=== PATIENT | male | born 1945 | race Caucasian/White ===

== ENCOUNTER → 2020-06-08 10:56 | Outpatient (CLI) | payer MEDICARE, BC, SELFPAY ==
[2020-06-08 13:06] LABS: COVID19 -Nasal RAPID Negative (Negative)
== END ==
PROVIDERS: Visit Provider Physician Assistant
DX: Z01.812 Encounter for preprocedural laboratory examination (principal); Z20.822 Contact with and (suspected) exposure to COVID-19
CPT/HCPCS: 87635; C9803

== ENCOUNTER 2020-06-10 07:44 | Day surgery (SDC) | payer MEDICARE, BC, SELFPAY ==
[2020-06-03 09:25] VITALS: BMI 23.7
[2020-06-10] VITALS (21 sets, daily range): BP systolic 92–138; BP diastolic 53–86; PULSE 66–91; RESP 12–20; TEMP 35.9–36.8; O2SAT 94–99; BMI 23.7
--- NOTE | 2020-06-10 | DI.RAD.S_ITS ---
PROCEDURE: XR PELVIS 1-2V INDICATIONS: INNER OP TECHNIQUE: 1 view of the lower pelvis acquired. COMPARISON: None. FINDINGS: Bones: Patient is status post left hip arthroplasty, with hardware components in expected positions. The hip joint appears congruent. The visualized bony structures appear intact. Soft tissues: Overlying postoperative changes are noted. No suspicious soft tissue densities. Multiple pelvic surgical clips bilaterally are present. Probable prior lymph node excision. IMPRESSION: Normal alignment after left total hip arthroplasty. Dictated by: Naif Huretas M.D. on 06/10/2020 at 11:53 Approved by: Naif Huertas M.D. on 06/10/2020 at 11:54
--- NOTE | 2020-06-10 06:39 | DI.RAD.S_ITS ---
PROCEDURE: XR HIP W PEL IF DONE LT 2V INDICATIONS: post op NAMITA TECHNIQUE: 3 view(s) of the hip acquired. COMPARISON: [facility], CR, XR PELVIS WITH LATERAL HIP LEFT, 01/03/2020, 11:57. [facility], CR, XR PELVIS 1-2V, 06/10/2020, 11:22. FINDINGS: Intraoperative images of the left total hip arthroplasty. Prosthesis is in the expected location. Multiple clips in the pelvis. IMPRESSION: Intraoperative images of the left total hip arthroplasty. Dictated by: Kevin Kuhn M.D. on 06/10/2020 at 11:20 Approved by: Kevin Kuhn M.D. on 06/10/2020 at 11:22
[2020-06-10] MEDS: CELECOXIB 200 MG CAPSULE PO (08:15)
[2020-06-10] MEDS: PREGABALIN 75 MG CAPSULE PO (08:15)
[2020-06-10] MEDS: ACETAMINOPHEN 325 MG TABLET 975 MG PO (08:15)
[2020-06-10] MEDS: LACTATED RINGERS 1,000 ML 42 ML IV (08:30)
--- NOTE | 2020-06-10 08:37 | PM.PREOP ---
Pre-operative Note COVID-19 COVID-19 status: Negative Result date/Date tested (Pos, Neg/Pending): 06/08/20 Interval Note History & Physical reviewed/Exam performed by Physician: Yes Changes to H&P: No H&P completed within 30 days and has changed as indicated here:: Plan for left anterior NAMITA
[2020-06-10] MEDS: CEFAZOLIN 2 GM/100 ML FROZ.PIGGY IV ×2 (08:44→17:10)
[2020-06-10] MEDS: TRANEXAMIC ACID 1,000 MG VIAL 2000 MG INJ ×2 (09:08→10:54)
--- NOTE | 2020-06-10 09:23 | SUR.OPER ---
Supine on padded [place] table with bilateral legs secured in padded positioning boots and suspended in positioning spars, operative leg in traction per surgeon. Head on one pillow. Arm on non-operative side secured on padded armboard <90 degrees abduction. Arm on operative side padded and resting across chest then secured with tape over sheet. Padded perineal post in place per surgeon.
[2020-06-10] MEDS: ROPIVACAINE 0.5% PF 5 MG/ML 20ML VIAL 60 ML INJ (09:36)
[2020-06-10] MEDS: MORPHINE 4 MG/ML INJ INJ (09:37)
[2020-06-10] MEDS: KETOROLAC 30 MG/ML VIAL IV (09:37)
[2020-06-10] MEDS: SODIUM CHLORIDE IRRIG SOLUTION 250 ML, POVIDONE-IODINE SPONGE STICKS 1 APPLIC IRR (09:40)
--- NOTE | 2020-06-10 11:17 | PM.OP.1 ---
Operative Date/Time/Diagnoses Date of procedure: 06/10/20 Time of procedure: 11:17 Pre-op diagnosis: left hip OA Post-op diagnosis: same Procedure & Clinicians Procedure: Left anterior total hip arthroplasty Same procedure as scheduled: Yes Indications: Left hip osteoarthritis resistant to further conservative measures Surgeon: Jarad Day Fittings Tightener: Tracy Mesa Click Yes if Unassisted: No Anesthesia Type: General and Spinal Operative Notes Findings: [id number]-[id number] arthritis at the weight-bearing portion the femoral head and acetabulum Closure Type: primary Specimen(s): none sent Prosthetic devices, grafts, tissues, transplants, or devices: [place] [employer] [place] R3 54 mm cup 54 mm x 36 mm neutral offset polyethylene liner 2x 25mm screws Size 7 standard offset anthology stem Biolox Delta ceramic 36+ 4 femoral head Estimated Blood Loss (mL): 200 Procedure in detail: Patient was met in the preoperative holding area where the site and side of surgery were marked by . Informed consent had been reviewed and signed in clinic however this was also reviewed the preoperative holding area. All last minute questions were answered. Patient was then brought back in the operating room where he received a spinal anesthetic. He was then transferred onto the Shell table and both feet were placed in well-padded [place] table boots. The left hip was then prepped and draped in normal sterile fashion. He was induced under general anesthesia. A surgical time-out was performed verifying the site and side of surgery as well as the name of the patient. A 7 cm long incision based 2 cm distal and 1 cm lateral to the ASIS was made in the skin using 10. Blade aiming towards the fibular head. Electrocautery was used to dissect down to the level the tensor fascia. A new 10. Blade was then used to incise the tensor fascia. Allis clamp was placed on the medial leaflet of the tensor and the tensor muscle itself was reflected laterally and a Cobra was placed over the superior aspect of the femoral neck. A Meyerding retractor was then placed over the lateral margin of the rectus femoris and retracted medially giving us good exposure to the ascending branches of the femoral circumflex vessels. These were then coagulated using electrocautery. A 2nd Cobra retractor was then placed over the inferior aspect of the femoral neck and a bent Hohmann was placed over the anterior lip of the acetabulum giving us good exposure to the capsule. Inverted T-shaped capsulotomy was then performed and superior inferior leaflets were tagged with a FiberWire suture. The capsule was then released off of the neck and the retractors were placed intracapsularly along the femoral neck this gave us good exposure of the femoral neck and and I used a reciprocating saw to make the femoral neck cut based off of our preop templated films. A corkscrew was then refused to remove the femoral head and soft tissue protector sleeve was then introduced into the wound. Bent Hohmann retractors then replaced the give us good exposure to the acetabulum and the labrum was removed using a [place] blade and electrocautery with suction was then used to remove the pulvinar. A 44 mm Reamer was then used to ream down to the base of the fossa. I began upsizing by 2s until I got to a 48 mm Reamer. At this point fluoroscopy was brought in to verify positioning. The final several reamers were reamed underneath fluoroscopic guidance at a 52 mm Reamer which are to get good resistance I selected 53 mm Reamer and then selected a 54 mm 3 hole cup. I touched reamed with the 54 mm Reamer and then placed the 54 mm cup underneath fluoroscopic guidance. This had good bite. Two screws were then placed both 25 mm in length. The polyethylene liner was then placed and malleted into place and confirmed that was flush with the rim of the cup and all tabs were well seated. We then turned attention to the femoral side femoral elevator hook placed on the posterior aspect of the femur the femur was then externally rotated to 120? extent to the floor and adducted. A Mcdonald retractor was placed over the calcar and a bent Hohmann was placed over the superior aspect of the superior leaflet of the capsulotomy the capsule then released off the inner shoulder of the greater trochanter which provide a soft tissue window and the large retractor was then placed over the greater trochanter to give a 6 exposure to the short external rotators. Short external rotators were partially released off their insertion. A alexis duarte was then used followed by sean rodriguez to lateralize followed by 1. Stem and upsizing to a size 6. At size 6 stem I calcar planed off the broach placed a standard offset neck with a 36+ 4 head and reduced the hip we were little short on fluoroscopic views of the hip was stable through range of motion. The hip was then dislocated the trials were removed and the we up sized by 1 stem to a size 7 stem and then trialed with a standard offset neck and a +4 head this gave us near identical leg lengths the hip was then dislocated a final time the broach and trials were removed and a size 7 standard anthology final stem was placed and a 36+ 4 bile locks delta ceramic head was placed onto the trunnion. The hip was then reduced a final time local anesthetic was then infiltrated in the periarticular soft tissues and the capsule itself. Betadine solution was then placed in the wound allowed to sit for several minutes prior to being lavage away with copious normal saline. Final fluoroscopic views were obtained. The capsulotomy was then repaired with a running Ethibond suture in the FiberWire tag sutures were removed. The tensor fascia was then closed using 1. Vicryl in a running fashion followed by 2 Vicryl in the subcutaneous layer for allowing followed by running 3-0 Stratafix in subcuticular Dermabond and Aquacel dressing. Complications: none Post-operative Condition: stable Disposition: PACU Plan for aftercare: 24 hours post-op abx, WBAT LLE, ASA 81mg BID for 6 weeks, warfarin (baseline)
[2020-06-10] MEDS: fentaNYL 100 MCG/2 ML INJ IV (11:54)
[2020-06-10] MEDS: LACTATED RINGERS 1,000 ML 100 ML IV ×3 (12:00→23:45)
--- NOTE | 2020-06-10 12:51 | SUR.PHASEI ---
Pt awoke, xray taken. Pt c/o minimal pain from hip, but 4/10 pain from back. Pt turned to l side and back inspected, no hematoma or anmy shrestha to back, ADELITA Flores concurred with assessment. Pt medicated with fentanyl, ice placed to back and this made discomfort to back tolerable
--- NOTE | 2020-06-10 12:54 | SUR.PHASEI ---
Pt transported up to room 215 and left with Consuelo in stable condition.
--- NOTE | 2020-06-10 13:50 | PT.IIE ---
Current Diagnoses Unilateral primary osteoarthritis, left hip (06/10/20) Surgery Performed Operation Date: 06/10/20 08:45 Actual Procedures p Total Hip Arthroplasty/Anterior Approach(Left) - Jarad Day MD Surgical History (Last Updated 06/03/20 @ 10:23 by Mercy Schmitz, RN) History of colonoscopy with polypectomy History of nasal surgery History of vasectomy (~1977) Hx of bilateral cataract extraction (2015) Hx of detached retina repair Hx of heart artery stent (2007) Hx of prostatectomy (12/1998) Medical History (Last Updated 06/03/20 @ 10:21 by Mercy Schmitz RN) Aortic valve regurgitation CAD (coronary artery disease) CHF (congestive heart failure) Hearing impaired HLD (hyperlipidemia) HTN (hypertension) Hypotension IBS (irritable bowel syndrome) Nonrheumatic aortic (valve) insufficiency PAF (paroxysmal atrial fibrillation) (2011) Prostate cancer (12/1998) Seasonal allergies Physical Therapy Inpatient Evaluation/Re-Eval M1 PT/OT-IP Prior Functional Status Start: 06/10/20 15:28 Freq: NEEDED Status: Active Protocol: Document 06/10/20 13:50 AB (Rec: 06/10/20 15:47 AB [email or web address]) Medical Review Prior Functional Status Medical History Reviewed Yes Communication able to make needs known Mobility and Gait pt stated that he is independent with all mobilities and ambulation without AD Social History Household Members spouse Living Arrangements House Number of Floors (Floors) Two Floors Number of Stairs To Enter/Railing? pt will stay on the main level of the house has 7 steps to enter with bilateral rails Home Environment Standard Height Toilet,Walk in Shower Home Equipment Front Wheel Walker,Raised Toilet Seat Without Armrests Employment Status Retired M2 PT-IP Current Condition Start: 06/10/20 15:28 Freq: NEEDED Status: Active Protocol: Document 06/10/20 13:50 AB (Rec: 06/10/20 15:47 AB [email or web address]) Physical Therapy Current Condition Current Condition Evaluation Date 06/10/20 Treatment Diagnosis s/p L NAMITA anterior approach; difficulty in walking Onset Date 06/10/20 Precautions Anterior Hip Precautions No Hip Extension,No Hip External Rotation Weight Bearing Status Weight Bearing Status Weight Bear as Tolerated Allowed Weight Bearing Amount (enter % LLE WBAT or #) (%) M3 PT-IP Subjective Start: 06/10/20 15:28 Freq: NEEDED Status: Active Protocol: Document 06/10/20 13:50 AB (Rec: 06/10/20 15:47 AB [id number]) Subjective Physical Therapy Visit Type Type Initial Evaluation Visit Start Time 13:50 Visit Stop Time 15:10 Total Visit Minutes 70 Notes pt seen for split visits: 1350 to 1450 and 1500 to 1510 Number of GRASSLAND CONSERVATIONIST Visits 0 Physical Therapy Visit Comments Patient Comments pt is agreeable to do PT; pt wanting to go home later today if possible Therapy Pain Assessment Pain Present Pain Present Denied Pain M4 PT-IP Mobility and Gait Start: 06/10/20 15:28 Freq: NEEDED Status: Active Protocol: Document 06/10/20 13:50 AB (Rec: 06/10/20 15:47 AB [id number]) PT-Bed Mobility Assessment Supine to Sit Supine to Sit Standby Assistance PT-Transfer Assessment Sit to and From Stand Sit to and from Stand Minimal Assistance,Moderate Assistance,1 Person Assistance ,Use of Upper Extremities Equipment Transfer Assistive Device Gait Belt,Front Wheeled Walker Orthotic/Prosthetic Devices or Brace: No Transfers Transfer Destination Chair Transfer Technique ambulated using FWW Transfer Ability Level of Assist Minimal Assistance,Moderate Assistance,1 Person Assistance ,Use of Upper Extremities Comments Mobility Comments informed pt regarding PT and inquired regarding sensation on BLE and stated that he can feel ok and wants to move. educated pt on L hip anterior precautions. pt is able to recall. BP: 122/68. completed supine to sit SBA. pt was able to sit on EOB and without any complaints. noticed pt urinating during mobility. pt stated that he still feels numb on his butt and still a little on BLE. assisted pt with brief/gown/ socks management. NAC also in room to assist. pt attempted to stand but continues to urinate during mobility and has to sit back down. assisted again with brief/socks management. pt completed sit to stand mod A and cues, able to maintain standing using FWW for support min to mod A and assisted with brief management. ambulated towards the chair using FWW min to mod A and cues. agreed to sit up on the chair. call light and table placed within reach. informed pt that he is not ready to go home today and pt agreed. set up caregiver training with spouse tomorrow at ~ 10 am. Nurse informed PT that pt's BP is low: 94/70 and needs assistance to go back to bed. Pt seen again and completed sit to stand min A and cues and completed step transfer to bed using FWW min A. completed sit to supine SBA. positioned in bed. call light and table placed within reach . BP checked: 102/72. Gait Assessment Gait Gait Assistance Required: Minimum Assistance,Moderate Assistance Distance (Feet) 12 Able to Maintain Weight Bearing Status Yes During Gait Assistive Devices Assistive Device Gait Belt,Front Wheeled Walker Orthotic/Prosthetic Devices or Brace: No Gait Deviations General Gait Pattern Antalgic,Decreased Stride Length,Decreased Feet Clearance Factors Limiting Gait Function Factors Limiting Gait Function Decreased Activity Tolerance, Decreased Sensation,Decreased Strength,Poor Balance PT-Balance Assessment Sitting Balance and Reactions Static Sitting Balance Ability Good Dynamic Sitting Balance Ability Good Standing Balance and Reactions Static Standing Balance Ability Fair Dynamic Standing Balance Ability Fair Device Used FWW M5 PT-IP Objective Assessments Start: 06/10/20 15:28 Freq: NEEDED Status: Active Protocol: Document 06/10/20 13:50 AB (Rec: 06/10/20 15:47 AB [email or web address]) Orientation Orientation/Cognition Level of Alertness Alert Orientation Name,Place,Situation Language Function Ability No Deficits Noted Safety Awareness Understands Safety Issues Memory Description No Deficits Noted Gross Range of Motion Lower Extremity ROM Assessment Within Functional Limits Strength Lower Extremity Strength Assessment Left Impaired Hip 3+/5 Knee 4-/5 Coordination Assessment Gross Coordination Gross Coordination WNL Sensation Assessment Sensation Sensation Description Numbness Comments Sensation Comments still c/o slight numbness on buttocks and BLE ; able to feel light touch on BLE Muscle Tone Muscle Tone WNL Yes M6 PT-IP Treatment Start: 06/10/20 15:28 Freq: NEEDED Status: Active Protocol: Document 06/10/20 13:50 AB (Rec: 06/10/20 15:47 AB [email or web address]) Physical Therapy Treatment Education Education Provided Precautions,Weight Bearing Status,Post-Op Packet,Safety M7 PT-IP Assessment and Plan Start: 06/10/20 15:28 Freq: NEEDED Status: Active Protocol: Document 06/10/20 13:50 AB (Rec: 06/10/20 15:47 AB [email or web address]) PT Summary Assessment and Plan Potential Rehabilitation Potential Good Status of Condition at Evaluation Evolving Summary Impairments Pain,ROM,Strength,Balance, Coordination,Sensation,Bed Mobility,Transfers,Gait, Activity Tolerance Assessment Summary pt requiring min to mod A with mobility. pt just had L NAMITA this morning and will likely progress during hospital stay. Pt is wanting to go home today but is not safe at this time and pt agreed. caregiver training set up for tomorrow with spouse assisting. Pt stated that he is set up for outpt PT. pt also has a standard walker but stated that he has the wheels/skids at home and spouse will be able to bring in tomorrow and PT to be able to adjust equipement. Goals Bed Mobility Goal Independent Transfer Goal Independent,Front Wheeled Walker Gait Goal Standby Assistance,Front Wheel Walker Gait Distance 200 Other Goals up/down 7 steps B rails SBA Days to Meet Goals 5 Frequency of Treatment Frequency Of Treatment Twice a Day Treatment Plan Physical Therapy Treatment Plan Bed Mobility Training,Transfer Training,Gait Training, Therapeutic Exercise,Balance Retraining,Post Op Education, Discharge Planning,Hot or Cold Pack,Neuromuscular Re-ed, Coordination Retraining,Manual Therapy Other Recommendations and Next Treatment caregiver training 06/11/20 10am Focus Recommendations To Nursing Amount of Assist Needed 1 Person Assist Discharge Recommendations PT Discharge Recommendations Home with Assistance, Outpatient PT Transportation Needs at Discharge Private Vehicle
[2020-06-10] MEDS: ACETAMINOPHEN 325 MG TABLET 650 MG PO ×2 (14:17→21:43)
[2020-06-10 16:53] LABS: Add Manual Diff / Slide Review NO; Basophils Absolute Auto 100 /uL (0-100); Basophils Percent Auto 0.4 % (0-2); Eosinophils Absolute Auto 0 /uL (0-450); Eosinophils Percent Auto 0.2 % (2-4); Hematocrit 37.6 % (41-53); Hemoglobin 12.5 g/dL (13.5-17.5); Lymphocytes Absolute Auto 400 /uL (1100-4500); Lymphocytes Percent Auto 3.4 % (25-40); Mean Corpuscular HGB Conc 33.2 % (30-36); Mean Corpuscular Hemoglobin 29.8 PG (26-34); Mean Corpuscular Volume 89.7 fL (80-100); Monocytes Absolute Auto 400 /uL (0-900); Neutrophils Absolute Auto 11600 /uL (1500-7000); Platelet Count 230 X10^3/uL (150-400); Red Cell Distribution Width 14.4 % (11.6-14.8); White Blood Cell Count 12.5 X10^3/uL (4.5-11.0)
[2020-06-10] MEDS: WARFARIN 5 MG TABLET 7.5 MG PO (17:10)
--- NOTE | 2020-06-10 17:31 | PC.NURSE ---
Addendum entered by Savita Truong R.N. 06/10/20 23:02: Pt desires to get out of bed to bathroom to toilet. Has been up with P.T. prior to this shift beginning and reported dizziness. BP checked by DRYING ROOM ATTENDANT with pt sitting on side of bed and systolic pressure 135. Pt ambulatory with DRYING ROOM ATTENDANT and voided in bathroom without any difficulties. Returned to bed. Medicated for c/o headache pain 06/14. Has had ice pack on and off of left anterior hip this shift. Addendum entered by Savita Truong R.N. 06/10/20 18:21: R.T. in to do I.S. teaching. Ice provided to left anterior hip. Aquacel dressing intact to left anterior hip. Pt admits to full sensation to BL LE's. Is actively ankle waving. BL calf scd's in place. Original Note: Pt denies pain. Admits to some back discomfort relieved with repositioning in bed. Dr. Day has seen pt this evening shift.
[2020-06-10] MEDS: LOPERAMIDE 2 MG CAPSULE 8 MG PO (21:42)
[2020-06-10] MEDS: ATORVASTATIN 20 MG TABLET 40 MG PO (21:43)
[2020-06-11 00:05] VITALS: BP 134/73; PULSE 97; RESP 18; TEMP 37; O2SAT 98
[2020-06-11] MEDS: OXYCODONE IR 5 MG TABLET PO (00:31)
[2020-06-11] MEDS: CEFAZOLIN 2 GM/100 ML FROZ.PIGGY IV (00:31)
[2020-06-11 05:00] VITALS: BP 115/81; PULSE 83; RESP 18; TEMP 36.7; O2SAT 98
[2020-06-11 05:51] LABS: Hematocrit 33.7 % (41-53); Hemoglobin 11.2 g/dL (13.5-17.5)
--- NOTE | 2020-06-11 06:18 | PC.NURSE ---
Pt stable through shift, pain controlled. Fluids running as prescribed. Dressing CDI, VSS: BP WNL. +C/S, ROM slightly decreased in L leg d/t surgical site.
--- NOTE | 2020-06-11 07:27 | PM.PNPO.1 ---
Subjective Subjective Date Patient Seen: 06/11/20 Time Patient Seen: 07:28 Interval history: POD #1 s/p L NAMITA with Dr. Day. His pain is well controlled with Oxycodone. He has not been up with PT yet. Exam Vital Signs (past 8 hours): - 06/11/20 00:05 06/11/20 05:00 Temperature 98.6 F 98.1 F Pulse Rate 97 H 83 Respiratory Rate 18 18 Blood Pressure 134/73 115/81 Pulse Oximetry 98 98 Oxygen Delivery Method Room Air Oxygen Flow Rate 0 Narrative Exam Narrative: Patient lying in bed in NAD. He is alert and oriented X3. Calves are soft, compressible, and nontender bilaterally. SILT throughout BLEs. DP pulses symmetrical. He is able to actively dorsiflex and plantarflex. Objective Labs Result Diagrams: 06/11/20 05:10 Labs: Laboratory Results - last 24 hr 06/10/20 06/11/20 16:48 05:10 WBC 12.5 H RBC 4.20 L Hgb 12.5 L 11.2 L Hct 37.6 L 33.7 L MCV 89.7 MCH 29.8 MCHC 33.2 RDW 14.4 Plt Count 230 Neut % (Auto) 93.0 H Lymph % (Auto) 3.4 L [place] % (Auto) 3.0 Eos % (Auto) 0.2 L Baso % (Auto) 0.4 Neut # (Auto) 79047 H Lymph # (Auto) 400 L [place] # (Auto) 400 Eos # (Auto) 0 Baso # (Auto) 100 PFSH Medical History Aortic valve regurgitation CAD (coronary artery disease) CHF (congestive heart failure) Hearing impaired HLD (hyperlipidemia) HTN (hypertension) Hypotension IBS (irritable bowel syndrome) Nonrheumatic aortic (valve) insufficiency PAF (paroxysmal atrial fibrillation) (2011) Prostate cancer (12/1998) Seasonal allergies Surgical History History of colonoscopy with polypectomy History of nasal surgery History of vasectomy (~1977) Hx of bilateral cataract extraction (2015) Hx of detached retina repair Hx of heart artery stent (2007) Hx of prostatectomy (12/1998) Social History household members: spouse Smoking Status: Never smoker alcohol intake: current Assessment & Plan Post-op Postoperative Procedures: Procedures Operation Date: 06/10/20 08:45 Actual Procedures Side Surgeon p Total Hip Arthroplasty/Anterior Approach Left Jarad Day MD Patient will mobilize with PT today. Will follow anterior hip precautions. He is to take ASA 81 mg BID. He is on Warfarin as well and has an appointment on Monday to get his INR checked. Plan to DC home today if he is mobilizing safely. Quality VTE Deep Vein Thrombosis/Pulmonary Embolism Present on Admission: No
[2020-06-11 08:00] VITALS: BP 119/70; PULSE 89; RESP 16; TEMP 36.8; O2SAT 98
--- NOTE | 2020-06-11 09:02 | CM.IDA ---
Initial DCP Assessment Note Patient is a 74 yo male, resident of [place]. Patient is POD#1 from Left NAMITA w/Dr Day Primary Care Provider: Nerissa Turner Payer: [employer]IM out of [facility] Reviewed chart, therapy has cleared pt for return home w/family to assist and pt has planned for home, DC order from Ortho has already been initiated this morning. Patient eager to go home, cg training will be conducted w/spouse today. Spouse is a retired RN, both patient/spouse confident about patient's return home. No needs expected from DC planning team although will remain available in case this changes today. KEYA Discharge Planning/Care Management CM Discharge Assessment Start: 06/11/20 08:57 Freq: Status: Active Protocol: Document 06/11/20 08:57 KEYA (Rec: 06/11/20 09:02 KEYA [id number]) Discharge Planning Assessment Assigned [employer] Courtesy Clerk GAETANO Wang DPOA/Assigned Designee Name Remberto Arellano, spouse Contact Information [phone], Advance Directives? No Advance Directives on File No History Provided By Patient,Significant Other, Medical Record Prior Living Arrangements House Household Members spouse Type of transporation used prior to Drives own vehicle admit Independent with ADL's Yes Is patient alert and oriented? Yes Caregiver for Another No Patient/Family Preference OP PT Therapy Barriers to Discharge No Discharge Plan Home Transportation Arrangement Spouse Referrals Initiated None needed
[2020-06-11] MEDS: ACETAMINOPHEN 325 MG TABLET 650 MG PO (09:49)
[2020-06-11] MEDS: LOPERAMIDE 2 MG CAPSULE 8 MG PO (09:49)
[2020-06-11] MEDS: ASPIRIN EC 81 MG TABLET PO (09:49)
[2020-06-11 09:50] VITALS: BP 119/70; PULSE 89
[2020-06-11] MEDS: DIGOXIN 0.125 MG TABLET PO (09:50)
--- NOTE | 2020-06-11 09:56 | PT.IPTN ---
Current Diagnoses Unilateral primary osteoarthritis, left hip (06/10/20) Surgery Performed Operation Date: 06/10/20 08:45 Actual Procedures p Total Hip Arthroplasty/Anterior Approach(Left) - Jarad Day MD Physical Therapy Treatment Note M2 PT-IP Current Condition Start: 06/10/20 15:28 Freq: NEEDED Status: Discharge Protocol: Document 06/10/20 13:50 AB (Rec: 06/10/20 15:47 AB [id number]) Physical Therapy Current Condition Current Condition Evaluation Date 06/10/20 Treatment Diagnosis s/p L NAMITA anterior approach; difficulty in walking Onset Date 06/10/20 Precautions Anterior Hip Precautions No Hip Extension,No Hip External Rotation Weight Bearing Status Weight Bearing Status Weight Bear as Tolerated Allowed Weight Bearing Amount (enter % LLE WBAT or #) (%) M3 PT-IP Subjective Start: 06/10/20 15:28 Freq: NEEDED Status: Discharge Protocol: Document 06/11/20 09:56 AB (Rec: 06/11/20 11:46 AB [id number]) Subjective Physical Therapy Visit Type Type Treatment Note Visit Start Time 09:56 Visit Stop Time 10:27 Total Visit Minutes 31 Number of MANAGER INSTRUMENTATION Visits 0 Physical Therapy Visit Comments Patient Comments pt is agreeable to do PT. spouse in room with pt Therapy Pain Assessment Pain When Pain Assessed At Rest Pain Present Pain Present Pain Reported Location Left Hip Intensity 1 Scale Used Numeric (0 - 10) Pain Management Techniques Timing of Activity with Medications M4 PT-IP Mobility and Gait Start: 06/10/20 15:28 Freq: NEEDED Status: Discharge Protocol: Document 06/11/20 09:56 AB (Rec: 06/11/20 11:46 AB [id number]) PT-Bed Mobility Assessment Supine to Sit Supine to Sit Standby Assistance Sit to Supine Sit to Supine Standby Assistance PT-Transfer Assessment Sit to and From Stand Sit to and from Stand Standby Assistance Equipment Transfer Assistive Device Gait Belt,Front Wheeled Walker Orthotic/Prosthetic Devices or Brace: No Transfers Transfer Destination Bed,Chair Transfer Technique ambulated using FWW Transfer Ability Level of Assist Standby Assistance,1 Person Assistance,Use of Upper Extremities Comments Mobility Comments pt sitting on chair with spouse assisted with dressing. Adjusted and replaced pt's standard walker legs to wheels and sliders per pt's request. pt completed sit to stand from chair SBA and ambulated towards the bed using FWW SBA. completed sit<>supine SBA. educated spouse on how to use safety belt and how to assist pt when needed. spouse was able to put safety belt on pt and assisted pt with sit to stand. pt ambulated towards the stairs ~ 75 ft using FWW SBA. educated pt and spouse on how to do stair climbing and pt completed with SBA using B rails. pt ambulated back to his room using FWW SBA and sat on chair. Pt and spouse has no further concerns . Gait Assessment Gait Gait Assistance Required: Standby Assistance Distance (Feet) 75 Able to Maintain Weight Bearing Status Yes During Gait Assistive Devices Assistive Device Gait Belt,Front Wheeled Walker Orthotic/Prosthetic Devices or Brace: No Gait Deviations General Gait Pattern Antalgic Factors Limiting Gait Function Factors Limiting Gait Function Decreased Strength,Pain,Poor Balance,Poor Safety Awareness Stair Climbing Assessment Evaluation Level of Assist On Stairs Standby Assistance Devices Stair Climbing Assistive Devices Left Railing,Right Railing Technique/Endurance Stair Climbing Direction Ascend and Descend Stair Climbing Technique Step to Step Number of Steps Climbed 3 Stair Climbing Set # Repetitions (reps) 2 M5 PT-IP Objective Assessments Start: 06/10/20 15:28 Freq: NEEDED Status: Discharge Protocol: Document 06/10/20 13:50 AB (Rec: 06/10/20 15:47 AB [id number]) Orientation Orientation/Cognition Level of Alertness Alert Orientation Name,Place,Situation Language Function Ability No Deficits Noted Safety Awareness Understands Safety Issues Memory Description No Deficits Noted Gross Range of Motion Lower Extremity ROM Assessment Within Functional Limits Strength Lower Extremity Strength Assessment Left Impaired Hip 3+/5 Knee 4-/5 Coordination Assessment Gross Coordination Gross Coordination WNL Sensation Assessment Sensation Sensation Description Numbness Comments Sensation Comments still c/o slight numbness on buttocks and BLE ; able to feel light touch on BLE Muscle Tone Muscle Tone WNL Yes M6 PT-IP Treatment Start: 06/10/20 15:28 Freq: NEEDED Status: Discharge Protocol: Document 06/11/20 09:56 AB (Rec: 06/11/20 11:46 AB [email or web address]) Physical Therapy Treatment Education Education Provided Precautions,Safety M7 PT-IP Assessment and Plan Start: 06/10/20 15:28 Freq: NEEDED Status: Discharge Protocol: Document 06/11/20 09:56 AB (Rec: 06/11/20 11:46 AB [id number]) PT Summary Assessment and Plan Potential Rehabilitation Potential Good Summary Impairments Pain,ROM,Strength,Balance,Bed Mobility,Transfers,Gait, Activity Tolerance Progress Towards Goals Progressing Toward Goals Assessment Summary pt is progressing well with mobility. pt plans to go home today and spouse will be able to assist pt. pt may go home when medically stable. Goals Bed Mobility Goal Independent Transfer Goal Independent,Front Wheeled Walker Gait Goal Standby Assistance,Front Wheel Walker Gait Distance 200 Other Goals up/down 7 steps B rails SBA Days to Meet Goals 5 Frequency of Treatment Frequency Of Treatment Twice a Day Treatment Plan Physical Therapy Treatment Plan Bed Mobility Training,Transfer Training,Gait Training, Therapeutic Exercise,Balance Retraining,Post Op Education, Discharge Planning,Hot or Cold Pack,Neuromuscular Re-ed, Coordination Retraining,Manual Therapy Other Recommendations and Next Treatment caregiver training 06/11/20 10am Focus Recommendations To Nursing Amount of Assist Needed 1 Person Assist Discharge Recommendations PT Discharge Recommendations Home with Assistance, Outpatient PT Transportation Needs at Discharge Private Vehicle
--- NOTE | 2020-06-11 11:11 | PC.NURSE ---
Pt is dressed and ready for discharge home with Spouse. Spouse is a RN. Went over d/c instructions with Pt and Spouse-discussed d/c meds, time of last dose, reviewed stroke education, reviewed anti-coagulation, reminded Pt to follow hip precautions, encouraged Pt to drink plenty of fluids to prevent constipation or dehydration, and no driving while on narcotics. Pt and Spouse denied further questions and were taken out via w/c by [employer] to POV with Spouse and all belongings.
== END 2020-06-11 11:17 | disposition home or self-care (01) ==
LOC: OR 07:50 → AC 12:55
PROVIDERS: Referring Provider Orthopaedic Surgery Adult Reconstructive Orthopaedic Surgery; Visit Provider Orthopaedic Surgery Adult Reconstructive Orthopaedic Surgery
PROC: (CPT 27130; principal; 2020-06-10 08:45)
DX: M16.12 Unilateral primary osteoarthritis, left hip (principal); I10 Essential (primary) hypertension; E78.5 Hyperlipidemia, unspecified; I50.9 Heart failure, unspecified; I48.0 Paroxysmal atrial fibrillation; Z79.01 Long term (current) use of anticoagulants
CPT/HCPCS: 27130; 36415; 72170; 73502; 76000; 85014; 85018; 85025; 85610; 97116; 97162; 97530; C1776; J0690; J1100; J1885; J2250; J2270; J2405; J2704; J3010

== ENCOUNTER 2024-02-20 08:46 | Day surgery (SDC) | payer MEDICARE, BC, SELFPAY ==
[2020-06-10 13:03] VITALS: BMI 23.7
[2024-02-08 11:51] VITALS: BMI 22.2
[2024-02-20] VITALS (11 sets, daily range): BP systolic 98–152; BP diastolic 50–91; PULSE 65–82; RESP 10–19; TEMP 35.8–37.1; O2SAT 92–98; BMI 21.7
--- NOTE | 2024-02-20 | DI.RAD.S_ITS ---
PROCEDURE: XR HIP W PEL IF DONE RT 2V INDICATIONS: TOTAL ANTERIOR RIGHT HIP TECHNIQUE: AP pelvis and lateral view of the hip acquired. COMPARISON: [facility], CR, XR HIP W PEL IF DONE RT 2V, 02/20/2024, 12:38. [facility], CR, XR HIP W PEL IF DONE LT 2V, 06/10/2020, 9:52. FINDINGS: Diffuse osseous demineralization. Status post bilateral total hip arthroplasty without hardware complication. Postoperative subcutaneous edema and emphysema around the right hip joint. Surgical clips overlying the pelvis. No fracture or dislocation. No hardware complication. IMPRESSION: Status post right hip total arthroplasty in expected alignment without hardware complication. Dictated by: Richard Sullivan M.D. on 02/20/2024 at 18:22 Approved by: Richard Sullivan M.D. on 02/20/2024 at 18:22
--- NOTE | 2024-02-20 06:00 | DI.RAD.S_ITS ---
PROCEDURE: XR HIP W PEL IF DONE RT 2V INDICATIONS: NAMITA TECHNIQUE: 2 view(s) of the hip acquired. COMPARISON: [facility], CR, XR HIP W PEL IF DONE LT 2V, 06/10/2020, 9:52. FINDINGS: Intraoperative fluoroscopy for right hip arthroplasty. The joint appears congruent. The lateral more screw fixing the acetabular cup may be outside the bony acetabulum. No unexpected fractures. Numerous surgical clips in the pelvis. Left hip arthroplasty changes are noted. IMPRESSION: Intraoperative fluoroscopy for right hip arthroplasty placement. Correlate with intraoperative findings. Dictated by: Zuleika Montero M.D. on 02/20/2024 at 23:34 Approved by: Zuleika Montero M.D. on 02/20/2024 at 23:36
[2024-02-20] MEDS: LACTATED RINGERS 1,000 ML 42 ML IV (09:24)
[2024-02-20] MEDS: ACETAMINOPHEN 325 MG TABLET 975 MG PO (09:24)
[2024-02-20] MEDS: VANCOMYCIN 1,000 MG/200 ML PIGGYBACK 200 MG IV (09:24)
[2024-02-20] MEDS: CELECOXIB 200 MG CAPSULE PO (09:24)
--- NOTE | 2024-02-20 10:44 | PM.PREOP ---
Pre-operative Note Interval Note History & Physical reviewed/Exam performed by Physician: Yes Changes to H&P: No
--- NOTE | 2024-02-20 10:46 | SUR.OPER ---
Patient supine on padded [place] table, one arm on padded arm board at <90, other arm padded and secured with tape across patient's chest, both legs secured in padded traction boots and positioned per surgeon, padded post at patient's groin, pressure points checked and padded.
--- NOTE | 2024-02-20 10:48 | PM.OP.1 ---
Operative Date/Time/Diagnoses Date of procedure: 02/20/24 Time of procedure: 11:00 Pre-op diagnosis: Severe right hip AVN, hip OA Post-op diagnosis: same Procedure & Clinicians Procedure: Right total hip arthroplasty anterior approach Same procedure as scheduled: Yes Indications: The patient has had progressively worsening right hip pain with radiographic changes consistent with arthritis. Non-operative management has failed and the patient has requested total hip replacement. The risks, benefits and alternatives to surgery were discussed with the patient prior to proceeding. Risks discussed included, but were not limited to, failure to relieve pain, leg length discrepancy, dislocation, stiffness, infection, nerve damage, deep venous thrombosis, pulmonary embolism, stroke, coma, heart attack, permanent paralysis and , as well as the potential need for eventual revision of the prosthetic. Surgeon: Doris [place] Nuclear Radiologist: Morgan Wolfe Anesthesia Type: Spinal Operative Notes Findings: Severe right hip osteoarthritis with marked flattening of the femoral head, adequate bone, adequate stability Closure Type: primary Specimen(s): none sent Prosthetic devices, grafts, tissues, transplants, or devices: [place] and nephew 56mm R3 acetabulum, neutral poly liner,two 6.5 mm screw, polar stem size 1 standard offset, 36 by +0 cobalt chrome, Estimated Blood Loss (mL): 250 Blood products transfused: none Procedure in detail: The patient was brought to the operating room. Patient was carefully positioned in the supine position. Time-out was performed and antibiotics were given. Anesthesia was induced. He was positioned in the on the table in order to allow hyperextension of the hip. The right lower extremity was prepped and draped in a standard sterile fashion. An anterior right hip incision was made 1 fingerbreadth lateral to the anterior superior iliac spine and extended distally towards the greater trochanter. Dissection was carried out through skin and subcutaneous tissues. Superficial hemostasis was achieved. The fascia over the tensor fascia david was defined and incised with a knife. Two Allis clamps were used to grasp the fascia. Tensor fascia david was retracted laterally. A gelpi retractor was placed. Dissection was carried out down along the neck. The circumflex vessels were carefully identified and cauterized with the Aqua Mantis. A PA was used during the procedure and was essential for intraoperative retraction and safe implantation of the components. There was good visualization of the femoral neck. A Cobra was placed superior to the neck and the gluteus fibers were carefully stripped from that superior aspect of the capsule. A 2nd retractor was placed along the inferior aspect of the neck. The rectus insertion along the capsule was partially released. A 3rd retractor that was then gently placed over the rim of the acetabulum under the rectus. Capsule was carefully incised and released from the intertrochanteric line circumferentially superior to the mid sagittal line and inferiorly to the mid sagittal line until the lesser trochanter was palpable. A tag stitch was placed both in the superior and inferior limb of the capsular insertion. Along the acetabulum capsule was also released up to the mid sagittal 12:00 position. A portion of the labrum was resected. A saw was used to perform an osteotomy at the level of the intertrochanteric line and the junction of the superior femoral neck leaving approximately 1 finger breath of residual inferior neck above the lesser trochanter. A 2nd cut was made along the femoral neck at the base of the head and a napkin ring of neck was removed. Corkscrew was placed in the femoral head and the head was removed without difficulty. Retractors were then repositioned around the acetabulum. Residual labrum was resected and additional osteophytes were removed. A reamer that was 4 mm below the templated size was placed by hand in the acetabulum and it was reamed to centralize the acetabulum. It was then reamed up to 2 under the templated size and fluoroscopy was brought in to confirm the position of the reaming and depth of reaming. I reamed 1 under the anticipated size. A trial cup was placed and noted that it was appropriately sized and fluoroscopy confirmed position and depth. The component was open and inserted without difficulty fluoroscopic imaging was used to confirm that the cup had been adequately seated and was well positioned. It was further stabilized with two screws. Neutral poly liner was placed. The cup was tested and noted to be stable. Attention was then directed to the femur. The femur was gently hyperextended additional capsular release was performed as needed in order to allow adequate visualization of the proximal femur with elevation of the femur. Patient was placed in a hyperextended slightly adducted position with maximum external rotation. Box osteotome was used to check for any residual neck as well as sclerotic bone along the trochanter. [place] pepper was placed in the femur. Additional broaching was performed. Canal finder was used to determine the alignment of the canal and position. Size 1 broach was placed. The canal was then appropriately broached up to the templated size as long as there was adequate stability of the broach and serial advancement of the broach without excessive impingement. Specific attention was directed at avoiding varus attempting to direct the distal aspect of the broach more anteriorly and avoiding excessive anteversion. Trial reduction showed acceptable range of motion, good stability, no posterior impingement, adventism of leg length and appropriate lateral shuck. I also hyperflexed the hip and checked that there was no impingement anteriorly and there was good stability with flexion, adduction and internal rotation. Marcaine and Exparel were injected.. The stem was placed without difficulty. Repeat trial reduction and x-ray showed acceptable overall position, length, and no evidence of the femoral fracture. Final head was placed. Wound was meticulously irrigated with normal saline. The hip was reduced and additional Exparel and Marcaine were injected. The capsule was closed with interrupted nonabsorbable sutures. The fascia of the tensor was closed with interrupted and running Vicryl. No drain was placed. Any tensor fascia david muscle that appeared to be contused or injured which was a minimal amount was carefully resected. Capsule around the tensor was injected with Exparel and Marcaine. The skin was closed with barbed stitches for the subcutaneous tissue and skin. We also used surgical glue. The wound was dressed sterilely. Brief Betadine soak was also used and was meticulously irrigated with normal saline. Patient was transferred to recovery room in satisfactory condition. Complications: none Post-operative Condition: stable Disposition: Acute Care Plan for aftercare: The patient will be maintained on a standard total hip replacement protocol with weight bearing as tolerated and anterior hip precautions. The patient will receive Aspirin and sequential compression devices for DVT prophylaxis. The patient will be discharged home when safe for the home environment.
[2024-02-20] MEDS: TRANEXAMIC ACID 1,000 MG VIAL 1000 MG INJ ×2 (11:30→13:30)
[2024-02-20] MEDS: CEFAZOLIN 2 GM/100 ML PREMIX 100 ML IV ×2 (11:30→19:39)
[2024-02-20] MEDS: BUPIVACAINE 0.25% (PF) 60 ML, EPINEPHrine 0.3 MG INJ (11:45)
[2024-02-20] MEDS: BUPIVACAINE LIPOSOME 266 MG/20 ML VIAL INJ (11:45)
--- NOTE | 2024-02-20 11:53 | SUR.OPER ---
Supine on padded [place] table with bilateral legs secured in padded positioning boots and suspended in positioning spars, operative leg in traction per surgeon. Head on one pillow. Arm on non-operative side secured on padded armboard <90 degrees abduction. Arm on operative side padded and resting across chest then secured with tape over sheet. Padded perineal post in place per surgeon.
[2024-02-20] MEDS: OXYCODONE IR 5 MG TABLET PO ×2 (14:22→22:31)
[2024-02-20] MEDS: LACTATED RINGERS 1,000 ML 100 ML IV (15:30)
--- NOTE | 2024-02-20 17:14 | PT-IP ANOTE ---
PT eval received and EMR reviewed. checked on pt and pt sitting up on the chair. spouse in room. pt stated that he is still numb with his bladder and unable to control and does not want to move around and not have any bladder control despite having pull-up on. obtained PLOF and home set up and spouse will be in tomorrow at ~ 930/1000am for possible caregiver training when appropriate.
[2024-02-20] MEDS: ATORVASTATIN 20 MG TABLET 40 MG PO (21:26)
[2024-02-20] MEDS: METOPROLOL IR 25 MG TABLET 12.5 MG PO (21:27)
[2024-02-20] MEDS: ASPIRIN EC 81 MG TABLET PO (21:27)
[2024-02-20] MEDS: LOPERAMIDE 2 MG CAPSULE 4 MG PO (21:27)
[2024-02-20] MEDS: ACETAMINOPHEN 325 MG TABLET 650 MG PO (22:32)
[2024-02-21] MEDS: CEFAZOLIN 2 GM/100 ML PREMIX 100 ML IV (03:37)
[2024-02-21] MEDS: OXYCODONE IR 5 MG TABLET PO ×2 (03:42→11:12)
[2024-02-21] MEDS: IBUPROFEN 400 MG TABLET PO (03:42)
[2024-02-21 06:38] LABS: Hematocrit 32.7 % (41-53); Hemoglobin 10.9 g/dL (13.5-17.5)
--- NOTE | 2024-02-21 07:13 | PM.DS.1 ---
History of Present Illness History of Present Illness Date Patient Seen: 02/21/24 Time Patient Seen: 07:13 Chief complaint: OPB Narrative: The patient had significant problems with prepatellar bursitis. It had been drained several times. In the preop it was noted to be swollen again and he requested aspiration of his prepatellar bursa. His prepatellar region was prepped it was carefully aspirating aspirated sterilely under sterile conditions removing about 20 cc of serous bursal fluid. He tolerated the procedure well. It was done at the completion of the hip arthroplasty. It was dressed sterilely and placed in an Chance wrap. Preprocedure diagnosis right knee prepatellar bursitis postprocedure diagnosis same. Procedure right knee bursal joint knee aspiration Operative Date/Time/Diagnoses Date of procedure: 02/20/24 Time of procedure: 11:00 Pre-op diagnosis: Severe right hip AVN, hip OA Post-op diagnosis: same Procedure & Clinicians Procedure: Right total hip arthroplasty anterior approach Same procedure as scheduled: Yes Indications: The patient has had progressively worsening right hip pain with radiographic changes consistent with arthritis. Non-operative management has failed and the patient has requested total hip replacement. The risks, benefits and alternatives to surgery were discussed with the patient prior to proceeding. Risks discussed included, but were not limited to, failure to relieve pain, leg length discrepancy, dislocation, stiffness, infection, nerve damage, deep venous thrombosis, pulmonary embolism, stroke, coma, heart attack, permanent paralysis and , as well as the potential need for eventual revision of the prosthetic. Surgeon: Doris [place] Traffic [employer] System Dispatcher: Morgan Wolfe Anesthesia Type: Spinal Operative Notes Findings: Severe right hip osteoarthritis with marked flattening of the femoral head, adequate bone, adequate stability Closure Type: primary Specimen(s): none sent Prosthetic devices, grafts, tissues, transplants, or devices: [place] and nephew 56mm R3 acetabulum, neutral poly liner,two 6.5 mm screw, polar stem size 1 standard offset, 36 by +0 cobalt chrome, Estimated Blood Loss (mL): 250 Blood products transfused: none Discharge Providers Provider Discharge Date: 02/21/24 Primary care physician: Luanne Sheikh PA-C Consults: 02/12/24 15:55 Consult to Anesthesiology Routine Comment: Consulting Provider: Anesthesiologist Reason for consultation: Surgeon request for cardiac history. 02/20/24 06:00 Consult to Anesthesiology Routine Comment: Consulting Provider: Anesthesiologist Reason for consultation: Regional block for post operative pain control 02/20/24 15:11 Consult to Discharge Planning Routine Comment: Consult to Occupational Therapy Evaluate & Treat Comment: Physician Instructions: Evaluate and treat Consult to Physical Therapy Evaluate & Treat Comment: Physician Instructions: post op NAMITA protocol Discharge provider: Evette Soliz PA-C Summary Hospital Course Discharge Diagnosis: 1) Severe right hip avascular necrosis, osteoarthritis, s/p right total hip arthroplasty 2) Right knee prepatellar bursitis, s/p aspiration Hospital Course: Mr Arellano's hospital course was unremarkable. On the morning of POD# 1, he was feeling well and wanted to go home. He was eating and voiding without difficulty and his pain was well-controlled with oral medication. He had not yet been evaluated by PT but had been up and walking around. Exam Vital Signs (past 8 hours): Oxygen Delivery Method Room Air Oxygen Flow Rate 0 Narrative Exam Narrative: 5/5 strength in hip flexors, quadriceps, hamstrings, PF, DF, EHL on right. Sensation to light touch intact throughout RLE, calf soft and compressible. Dressing CDI. 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) H/O tricuspid valve annuloplasty History of colonoscopy with polypectomy History of vasectomy (~1977) History of nasal surgery Hx of detached retina repair Hx of bilateral cataract extraction (2015) Hx of prostatectomy (12/1998) Hx of heart artery stent (2007) Social History household members: spouse Smoking Status: Never smoker alcohol intake: current Discharge Assessment & Plan Assessment and Plan Assessment: 1) Severe right hip avascular necrosis, osteoarthritis, s/p right total hip arthroplasty 2) Right knee prepatellar bursitis, s/p aspiration Plan of Treatment: Discharge home after PT, ASA 81mg BID for VTE prophylaxis, multimodal pain control, outpt PT, f/u in office in 2 weeks as scheduled. Discharge Plan Discharge Plan Patient Disposition: Home Provider Discharge Comment: Increase Aspirin to 81mg BID. Pt has rxs for post-op meds at home. Discharge orders & Medications Discharge Orders: Discharge (Order); Ordered 02/21/24 Ordered By: Evette Soliz Prescriptions: Continued atorvastatin 40 mg Tablet 40 mg PO BEDTIME loperamide 2 mg Tablet 4 mg PO BID ibuprofen 400 mg Tablet 400 mg PO BID PRN (Reason: Pain (Scale Score 1-3)) amiodarone 200 mg tablet 100 mg PO DAILY metoprolol tartrate 25 mg tablet 12.5 mg PO BID aspirin 81 mg tablet,delayed release (DR/EC) 81 mg PO DAILY fludrocortisone 0.1 mg tablet 0.1 mg PO 2XW furosemide 40 mg tablet 40 mg PO PRN PRN (Reason: Edema) Follow up/Referrals: Luanne Sheikh PA-C [Primary Care Provider] - Doris [place] MD [Physician] - 03/01/24 3:00 pm (Follow up w/ Jem Wolfe PA-C, at [facility] in [place].) Diet/Activity/Treatments Diet: Diet as Tolerated Activity: WBAT, anterior hip precautions. Cold/Heat Therapy: Ice to hip as needed for pain. Skin/Wound/Dressing Care Report to your healthcare provider any signs of infection, such as:: chills, fever, night sweats, unusual drainage and unusual redness Dressing: May shower. Leave dressing in place until follow up in office. No bathing or otherwise soaking incision. Call the office if the dressing becomes saturated inside. Keep knee wrapped to prevent re-accumulation of fluid. Visit Report/Discharge Packet Instructions: DI for Hip Replacement, DI for Prescription Opioid Use Stand Alone Forms: Patient Portal/API, Surgery Discharge Discharge Data Primary Care Provider: Luanne Sheikh Attending Provider: Doris [place]
[2024-02-21 08:08] VITALS: BP 113/63; PULSE 77; RESP 16; TEMP 36.2; O2SAT 97
[2024-02-21] MEDS: AMIODARONE 200 MG TABLET 100 MG PO (08:21)
[2024-02-21] MEDS: ASPIRIN EC 81 MG TABLET PO (08:21)
[2024-02-21] MEDS: LOPERAMIDE 2 MG CAPSULE 4 MG PO (08:21)
[2024-02-21] MEDS: METOPROLOL IR 25 MG TABLET 12.5 MG PO (08:22)
[2024-02-21] MEDS: SODIUM CHLORIDE 0.9% FLUSH 10 ML IV (08:23)
--- NOTE | 2024-02-21 09:27 | OT.IP.EVAL ---
Current Diagnoses Unilateral primary osteoarthritis, right hip (02/20/24) Surgery Performed Operation Date: 02/20/24 10:45 Actual Procedures p Total Hip Arthroplasty/Anterior Approach(Right) - Doris Colorado MD Past Medical History (Last Updated 02/09/24 @ 12:54 by Karlie Hanley, ADELITA) Aortic valve regurgitation CAD (coronary artery disease) CHF (congestive heart failure) Hearing impaired HLD (hyperlipidemia) HTN (hypertension) Hypotension IBS (irritable bowel syndrome) Ischemic cardiomyopathy Nonrheumatic aortic (valve) insufficiency PAF (paroxysmal atrial fibrillation) (2011) Prostate cancer (12/1998) Seasonal allergies Surgical History (Last Reviewed 02/20/24 @ 09:18 by Mariaa Richardson, ADELITA) H/O tricuspid valve annuloplasty History of colonoscopy with polypectomy History of nasal surgery History of vasectomy (~1977) Hx of bilateral cataract extraction (2015) Hx of detached retina repair Hx of heart artery stent (2007) Hx of prostatectomy (12/1998) 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) Occupational Therapy Inpatient Evaluation/Re-Eval M1 PT/OT-IP Prior Functional Status Start: 02/20/24 17:12 Freq: NEEDED Status: Active Protocol: Document 02/21/24 09:27 [facility] (Rec: 02/21/24 10:42 [facility] [id number]) Medical Review Prior Functional Status Medical History Reviewed Yes Communication able to make needs known Mobility and Gait pt stated that he was modified independent with all mobilities and ambulation using a SPC indoors and a FWW outdoors Activities of Daily Living and IADL's Independent with increased time due to pain. Social History Household Members spouse Living Arrangements House Number of Floors (Floors) Two Floors Number of Stairs To Enter/Railing? pt stays on main level of the house 7 steps B rails to enter the house Home Environment Standard Height Toilet,Walk in Shower Home Equipment Front Wheel Walker,Straight Cane,Raised Toilet Seat Without Armrests,Shower Seat without Backrest M2 OT-IP Current Condition Start: 02/21/24 10:27 Freq: Status: Active Protocol: Document 02/21/24 09:27 [facility] (Rec: 02/21/24 10:42 [facility] [id number]) Occupational Therapy Current Condition Current Condition Evaluation Date 02/21/24 Treatment Diagnosis S/P R NAMITA anterior approach Diagnosis Onset Date 9/17/24 Post Operative Precautions Anterior Hip Precautions No Hip Extension,No Hip External Rotation Weight Bearing Status Weight Bearing Status Weight Bear as Tolerated M3 OT- IP Subjective and Pain Start: 02/21/24 10:27 Freq: Status: Active Protocol: Document 02/21/24 09:27 [facility] (Rec: 02/21/24 10:42 [facility] [id number]) OT- Subjective Occupational Therapy Visit Type Type Initial Evaluation Visit Start Time 08:48 Visit Stop Time 09:27 Occupational Therapy Visit Comments Patient Comments Pt agreed to get up to use the bathroom and get dressed. Patient/Caregiver Goals To go home. OT Pain Assessment Pain When Pain Assessed During Mobility Pain Present Pain Present Pain Reported Location Right Hip Intensity 2 Scale Used Numeric (0 - 10) M4 OT- IP ADL's Start: 02/21/24 10:27 Freq: Status: Active Protocol: Document 02/21/24 09:27 [facility] (Rec: 02/21/24 10:42 [facility] [id number]) OT ONG-Nyzh-Arhzbip General Evaluation Self-Feeding Ability Independent OT ADL-Grooming General Evaluation Grooming Ability Standby Assistance Areas Needing Assistance Retrieving/Set-up of Grooming Items Comments OT Grooming Comments Able to do while standing with FWW at this sink. OT ADL-Oral Care General Eval Oral Care Ability Independent OT ADL-Dressing General Eval Upper Body Dressing Ability Independent Lower Body Dressing Ability Moderate Assistance Areas Needing Assistance Socks,Shoes Comments OT Dressing Comments Pt able to lean forwards to assist h LB dressing needs . Pt needing assist for tight socks and get the heel of his shoe on. Educated to dress the RLE first and take out last. OT ADL-Toileting General Evaluation Toileting Ability Standby Assistance Comments OT Toileting Comments Educated pt to be mindful of his RLE positioning during ADL needs. OT ADL-Bathing Comments OT Bathing Comments Spoke of care for dressing needs and to be sure not to get it wet. M5 OT- IP IADL's Start: 02/21/24 10:27 Freq: Status: Active Protocol: Document 02/21/24 09:27 [facility] (Rec: 02/21/24 10:42 [facility] [id number]) OT-Instrumental Activities of Daily Living Deficits IADL Deficits Identified Deficits Home Safety Awareness Awareness of Need for Assistance at Home Good Awareness Ability to Problem Solve Emergency Able to Problem Solve Situations Meal Preparation Meal Preparation Caregiver Provides Assist Database Modeler Database Modeler Caregiver Provides Assist M6 OT- IP Functional Cognition Start: 02/21/24 10:27 Freq: Status: Active Protocol: Document 02/21/24 09:27 [facility] (Rec: 02/21/24 10:42 [facility] [id number]) Cognitive Factors Limiting Selfcare Function Cognitive Ability Level of Alertness Alert Patient Orientation Name,Place,Situation Attention Span Ability Capable of Focused Attention, Capable of Sustained Attention Ability to Follow Commands Able to Follow One Step Commands Safety Awareness Decreased Ability to Apply Precautions Cognitive Comments Cognitive Assessment Comments Pt needing cues to follow his hip precautions, to slow down and take smaller steps. OT- Vision and Hearing OT- Hearing Assessment OT- Hearing Assessment Hearing Impaired,Use of Hearing Aids OT- Vision Assessment Visual Acuity Glasses For Reading Visual Attentiveness WFL Occular Pursuits WFL M7 OT- IP Mobility and Balance Start: 02/21/24 10:27 Freq: Status: Active Protocol: Document 02/21/24 09:27 [facility] (Rec: 02/21/24 10:42 [facility] [id number]) OT- Bed Mobility Assessment Supine to Sit Supine to Sit Assist Standby Assistance Sit to Supine Sit to Supine Assist Standby Assistance Scooting Scooting to Edge of Bed Standby Assistance Scooting Up and Down in Bed Standby Assistance OT-Transfer Assessment Sit to and From Stand Sit to and from Stand Standby Assistance,Contact Guard Assistance Transfers Transfer Ability Standby Assistance Technique Transfer Destination Bed,Chair,Toilet Transfer Technique Stand Step Pivot Devices Transfer Assistive Devices Gait Belt,Front Wheeled Walker Comments Mobility Comments Pt initially trying to abduct / externally rotate his RLE to get back to bed and having to stop him and educated to be sure his toes are pointing straight up to prevent from externally rotating his RLE outwards and may be easier to keep his legs together while getting on and off the bed. Pt needing MOD vc to remember and follow his hip precautions . OT- Balance Assessment Sitting Balance and Reactions Static Sitting Balance Ability Normal Dynamic Sitting Balance Ability Normal Standing Balance and Reactions Static Standing Balance Ability Good Dynamic Standing Balance Ability Good M8 OT- IP Objective Assessments Start: 02/21/24 10:27 Freq: Status: Active Protocol: Document 02/21/24 09:27 [facility] (Rec: 02/21/24 10:42 [facility] [id number]) OT Gross Range of Motion Upper Extremity Range of Motion Assessment Within Functional Limits OT Strength Upper Extremity Strength Assessment Within Functional Limits M9 OT- IP Assessment and Plan Start: 02/21/24 10:27 Freq: Status: Active Protocol: Document 02/21/24 09:27 [facility] (Rec: 02/21/24 10:42 [facility] [id number]) OT Summary Assessment and Plan Potential Rehabilitation Potential Excellent Analytic Complexity at Evaluation Low Summary OT Impairments Pain,Balance,Functional Mobility,Dressing,Bathing, Toilet Transfers,Shower Transfers Progress Towards Goals Progressing Toward Goals Assessment Summary Pt low complexity and main barriers are pain,steps and needing some reminders to follow his hip precautions. Pt to go home with assist and attend outpt PT. Goals Dressing Goal Independent Toileting Goal Independent Bathing Goal Standby Assistance Toilet Transfer Goal Independent Shower Transfer Goal Standby Assistance Days to Meet Goals 5 Treatment Plan OT Treatment Plan ADL Training,Functional Mobility,Patient/Family Education,Discharge Planning Discharge Recommendations OT Discharge Recommendations Home with Assistance, Outpatient PT Transportation Needs at Discharge Private Vehicle
--- NOTE | 2024-02-21 09:45 | PT.IIE ---
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) Medical History (Last Updated 02/09/24 @ 12:54 by Karlie Hanley, ADELITA) Aortic valve regurgitation CAD (coronary artery disease) CHF (congestive heart failure) Hearing impaired HLD (hyperlipidemia) HTN (hypertension) Hypotension IBS (irritable bowel syndrome) Ischemic cardiomyopathy Nonrheumatic aortic (valve) insufficiency PAF (paroxysmal atrial fibrillation) (2011) Prostate cancer (12/1998) Seasonal allergies Physical Therapy Inpatient Evaluation/Re-Eval M1 PT/OT-IP Prior Functional Status Start: 02/20/24 17:12 Freq: NEEDED Status: Discharge Protocol: Document 02/21/24 09:45 [facility] (Rec: 02/21/24 12:05 AB [id number]) Medical Review Prior Functional Status Medical History Reviewed Yes Communication able to make needs known Mobility and Gait pt stated that he was modified independent with all mobilities and ambulation using a SPC indoors and a FWW outdoors Activities of Daily Living and IADL's Independent with increased time due to pain. Social History Household Members spouse Living Arrangements House Number of Floors (Floors) Two Floors Number of Stairs To Enter/Railing? pt stays on main level of the house 7 steps B rails to enter the house Home Environment Standard Height Toilet,Walk in Shower Home Equipment Front Wheel Walker,Straight Cane,Raised Toilet Seat Without Armrests,Shower Seat without Backrest M2 PT-IP Current Condition Start: 02/20/24 17:12 Freq: NEEDED Status: Discharge Protocol: Document 02/21/24 09:45 [facility] (Rec: 02/21/24 12:05 AB [id number]) Physical Therapy Current Condition Current Condition Evaluation Date 02/21/24 Treatment Diagnosis s/p R NAMITA anterior; difficulty in walking Onset Date 02/20/24 M3 PT-IP Subjective Start: 02/20/24 17:12 Freq: NEEDED Status: Discharge Protocol: Document 02/21/24 09:45 [facility] (Rec: 02/21/24 12:05 AB [id number]) Subjective Physical Therapy Visit Type Type Initial Evaluation Visit Start Time 09:45 Visit Stop Time 10:15 Number of POURER CRANE LADLE Visits 0 Physical Therapy Visit Comments Patient Comments agreeable to do PT Therapy Pain Assessment Pain When Pain Assessed At Rest Location Right Hip Intensity 3 Scale Used Numeric (0 - 10) Pain Management Techniques Apply Cold,Distraction, Modification of Treatment,Re- positioning,Timing of Activity with Medications M4 PT-IP Mobility and Gait Start: 02/20/24 17:12 Freq: NEEDED Status: Discharge Protocol: Document 02/21/24 09:45 [facility] (Rec: 02/21/24 12:05 [id number]) PT-Bed Mobility Assessment Supine to Sit Supine to Sit Standby Assistance Sit to Supine Sit to Supine Standby Assistance PT-Transfer Assessment Sit to and From Stand Sit to and from Stand Standby Assistance,Contact Guard Assistance,1 Person Assistance,Use of Upper Extremities Equipment Transfer Assistive Device Gait Belt,Front Wheeled Walker Orthotic/Prosthetic Devices or Brace: No Transfers Transfer Destination Bed,Chair Transfer Technique ambulated Transfer Ability Level of Assist Standby Assistance,Contact Guard Assistance,1 Person Assistance,Use of Upper Extremities Comments Mobility Comments pt sitting on the chair and spouse in room. educated pt regarding R hip anterior precautions and pt able to recall. educated spouse on how to put safety belt on pt. required 2 attempts. pt completed sit to stand from the chair CGA and ambulated to the EOB using FWW CGA. noted increase L knee varum and antalgic gait but without LOB. pt completed sit<>supine x 2 sets SBA and cues for techniques. pt completed sit to stand form EOB SBA to CGA and spouse assisting pt. pt ambulated in the hallway using FWW SBA to CGA ~ 150 ft. pt completed up/down steps using B rails CGA. educated spouse on how to assist pt. pt ambulated back to his room using FWW SBA to CGA. pt sat back on his chair. positioned on the chair. call light and table placed within reach. pt and spouse without further concerns. Gait Assessment Gait Gait Assistance Required: Standby Assistance,Contact Guard Assist,1 Person Assist Distance (Feet) 150 Able to Maintain Weight Bearing Status Yes During Gait Assistive Devices Assistive Device Gait Belt,Front Wheeled Walker Orthotic/Prosthetic Devices or Brace: No Gait Deviations General Gait Pattern Antalgic,Decreased Feet Clearance Factors Limiting Gait Function Factors Limiting Gait Function Decreased Activity Tolerance, Decreased Strength,Limited Range of Motion,Pain,Poor Balance,Poor Safety Awareness Stair Climbing Assessment Evaluation Level of Assist On Stairs Contact Guard Assistance Devices Stair Climbing Assistive Devices Left Railing,Right Railing Technique/Endurance Stair Climbing Direction Ascend and Descend Stair Climbing Technique Step to Step Number of Steps Climbed 3 Query Text: Stair Climbing Set # Repetitions (reps) 2 PT-Balance Assessment Sitting Balance and Reactions Static Sitting Balance Ability Normal Dynamic Sitting Balance Ability Good Standing Balance and Reactions Static Standing Balance Ability Fair Dynamic Standing Balance Ability Fair Device Used FWW M5 PT-IP Objective Assessments Start: 02/20/24 17:12 Freq: NEEDED Status: Discharge Protocol: Document 02/21/24 09:45 AB (Rec: 02/21/24 12:05 [id number]) Orientation Orientation/Cognition Level of Alertness Alert Orientation Name,Place,Situation Language Function Ability Hard of Hearing Safety Awareness Decreased Safety Awareness Memory Description Short Term Impaired Gross Range of Motion Lower Extremity ROM Assessment Within Functional Limits Strength Lower Extremity Strength Hip 4-/5 Knee 4-/5 Coordination Assessment Gross Coordination Gross Coordination WNL Sensation Assessment Sensation Gross Sensation WNL Muscle Tone Muscle Tone WNL Yes M6 PT-IP Treatment Start: 02/20/24 17:12 Freq: NEEDED Status: Discharge Protocol: Document 02/21/24 09:45 AB (Rec: 02/21/24 12:05 [id number]) Physical Therapy Treatment Education Education Provided Precautions,Weight Bearing Status,Post-Op Packet,Safety M7 PT-IP Assessment and Plan Start: 02/20/24 17:12 Freq: NEEDED Status: Discharge Protocol: Document 02/21/24 09:45 [facility] (Rec: 02/21/24 12:05 [id number]) PT Summary Assessment and Plan Potential Rehabilitation Potential Good Status of Condition at Evaluation Stable Summary Impairments Pain,ROM,Strength,Balance,Bed Mobility,Transfers,Gait, Activity Tolerance Assessment Summary pt is an 78 y/o M s/p R NAMITA anterior approach POD 1. pt with R hip anterior precautions and is WBAT. pt requiring SBA to cGA with mobility using FWW. caregiver training conducted and spouse will assist pt at home. pt has outpt PT set up. pt may go home when medically stable. Goals Bed Mobility Goal Independent Transfer Goal Independent,Front Wheeled Walker Gait Goal Independent,Front Wheel Walker Gait Distance 200 Other Goals up/down 7 steps B rails mod I Days to Meet Goals 5 Frequency of Treatment Frequency Of Treatment Twice a Day Treatment Plan Physical Therapy Treatment Plan Bed Mobility Training,Transfer Training,Gait Training, Therapeutic Exercise,Balance Retraining,Post Op Education, Discharge Planning,Hot or Cold Pack,Neuromuscular Re-ed, Coordination Retraining,Manual Therapy Precautions Anterior Hip Precautions No Hip Extension,No Hip External Rotation Weight Bearing Status Weight Bearing Status Weight Bear as Tolerated Allowed Weight Bearing Amount (enter % RLe WBAT or #) (%) Recommendations To Nursing Amount of Assist Needed 1 Person Assist Discharge Recommendations PT Discharge Recommendations Home with Assistance, Outpatient PT Transportation Needs at Discharge Private Vehicle
--- NOTE | 2024-02-21 11:20 | PC.NURSE ---
Pt is dressed and ready for discharge home with Spouse. IV has been removed. Went over d/c instructions with Pt and Spouse-discussed d/c meds, time of last dose, reviewed stroke education, s/s of infection, showering, hip precautions, no driving while on narcotics, drink plenty of fluids to prevent constipation or dehydration and follow up as scheduled. Pt denied further questions and was taken out via w/c by MOLDING LINE OPERATOR to pov with Spouse and all belongings.
--- NOTE | 2024-02-21 12:07 | CM.DANOTE ---
Discharge Planning/Care Management CM Discharge Assessment Start: 02/21/24 11:51 Freq: Status: Active Protocol: Document 02/21/24 11:51 KEYA (Rec: 02/21/24 12:07 KEYA [id number]) Discharge Planning Assessment Assigned Block Engraver GAETANO Antonio DPOA/Assigned Designee Name Remberto Arellano, spouse Contact Information [phone] Advance Directives? Yes Advance Directives on File No History Provided By Patient,Significant Other, Medical Record Prior Living Arrangements House Household Members spouse Type of transporation used prior to Drives own vehicle admit Independent with ADL's Yes Is patient alert and oriented? Yes Patient/Family Preference OP PT Therapy Barriers to Discharge No Comment Patient is POD1 from right NAMITA . Patient has planned for return home w/spouse to assist and therapies have cleared patient for this plan. No needs identified from this CM team. Discharge Plan Home Transportation Arrangement Spouse Referrals Initiated None needed
== END 2024-02-21 11:23 | disposition home or self-care (01) ==
LOC: OR 08:48 → AC 08:50
PROVIDERS: PCP Physician Assistant; Referring Provider Orthopaedic Surgery; Visit Provider Orthopaedic Surgery
PROC: (CPT 27130; principal; 2024-02-20 10:45)
DX: M16.11 Unilateral primary osteoarthritis, right hip (principal); M70.41 Prepatellar bursitis, right knee; M25.751 Osteophyte, right hip
CPT/HCPCS: 27130; 10021; 36415; 73502; 76000; 85014; 85018; 97161; 97165; 97530; 97535; C1776; C9290; J0171; J0690; J1100; J2405; J2704